=== PATIENT | male | born 1980 | race Caucasian/White ===

== ENCOUNTER 2018-11-23 17:32 | Emergency (ER) | payer SELFPAY ==
[~2018-11-23] VITALS: Ht 170.2 cm; Wt 73.0 kg
[2018-11-23] MEDS ORDERED: LIDOCAINE HCL/PF 1% 10 MG/ML 5ML VIAL IJ ONE (18:15)
[2018-11-23] MEDS ORDERED: BACITRACIN ZINC OINT UDPKT TOP ONE (18:15)
[2018-11-23] MEDS ORDERED: TETANUS, DIPHTHERIA, PERTUSSIS VAC/PF 0.5ML (>7YR OLD) IM ONE (18:15)
[2018-11-23 20:00] VITALS: BP 112/69
== END 2018-11-23 20:00 | disposition home or self-care (01) ==
LOC: ER 17:47
DX: S21.111A Laceration without foreign body of right front wall of thorax without penetration into thoracic cavity, initial encounter (principal); S21.212A Laceration without foreign body of left back wall of thorax without penetration into thoracic cavity, initial encounter; S61.412A Laceration without foreign body of left hand, initial encounter; F17.210 Nicotine dependence, cigarettes, uncomplicated; F12.10 Cannabis abuse, uncomplicated; Z98.890 Other specified postprocedural states; X99.9XXA Assault by unspecified sharp object, initial encounter; Y93.89 Activity, other specified; Y92.488 Other paved roadways as the place of occurrence of the external cause
CPT/HCPCS: 12005; 90471; 90715; 99284; A4217; J3490; Z7610

== ENCOUNTER 2018-11-25 13:40 | Emergency (ER) | payer SELFPAY ==
[~2018-11-25] VITALS: Ht 162.6 cm; Wt 71.0 kg
[2018-11-25 13:43] VITALS: BP 114/69
[2018-11-25] MEDS ORDERED: LIDOCAINE HCL 1% 20ML VIAL (Pyxis) INJ INFIL ONE (14:45)
[2018-11-25] MEDS ORDERED: CEFTRIAXONE SODIUM 1 G/VIAL IM ONE (14:45)
== END 2018-11-25 16:18 | disposition home or self-care (01) ==
LOC: ER 13:40
DX: L08.9 Local infection of the skin and subcutaneous tissue, unspecified (principal)
CPT/HCPCS: 73130; 96372; 99283; J0696; J3490

== ENCOUNTER 2018-11-27 11:22 | Emergency (ER) | payer SELFPAY ==
[~2018-11-27] VITALS: Ht 170.2 cm; Wt 80.0 kg
[2018-11-27 11:28] VITALS: BP 109/68
== END 2018-11-27 12:12 | disposition left against medical advice (07) ==
LOC: ER 11:22
DX: Z53.21 Procedure and treatment not carried out due to patient leaving prior to being seen by health care provider (principal)